=== PATIENT | male | born 1965 | race Caucasian/White ===

== ENCOUNTER 2016-08-31 16:49 | Emergency (ER) | payer MEDICAID ==
[~2016-08-31] VITALS: Ht 157.5 cm; Wt 59.0 kg
[~2016-08-31 16:49] MED LIST: AMOXICILLIN 50500 MG PO; APAP/BUTALBITAL1 TA1 PO; AUGMENTIN 875-1 EACH PO; CIPRO 500MG TA500 MG PO; FLEXERIL10 MG PO; GABAPENTIN300 M1 PO; HYTRIN5 MG PO; INDOCIN25 MG PO; KEFLEX 500MG.500 MG PO; LISINOPRIL 10MG10 MG PO; LODINE200 MG PO; LORATADINE 10MG10 M1 PO; LORTAB 5/500 501 TAB PO; MECLIZINE 25MG25 MG PO; MELOXICAM15 MG PO; NOMEDS XX; POTASSIUM CHLO10 ME3 PO; PYRIDIUM 200MG200 MG PO; SUMATRIPTAN SUC25 MG PO; TORADOL10 M2 PO; ZANTAC 150MG T150 MG PO; [UNRECOGNIZED DRUG - OTHER] PO
[2016-08-31] MEDS ORDERED: AMLODIPINE BES2.5 MG PO (16:59)
[2016-08-31] MEDS ORDERED: HCTZ/LISINOPRIL1 TA3 PO (16:59)
[2016-08-31] MEDS ORDERED: ASPIRIN ADULT L81 M3 PO (17:00)
[2016-08-31] MEDS ORDERED: OMEPRAZOLE20 MG PO (17:00)
[2016-08-31] MEDS ORDERED: GABAPENTIN300 M1 PO (17:00)
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
[2016-08-31 17:38] VITALS: BP 128/96
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
== END 2016-08-31 17:39 | disposition home or self-care (01) ==
LOC: ER 16:49
PROC: 09QKXZZ Repair Nasal Mucosa and Soft Tissue, External Approach (ICD-10-PCS; principal; 2016-08-31)
DX: S02.2XXA Fracture of nasal bones, initial encounter for closed fracture (principal); S01.21XA Laceration without foreign body of nose, initial encounter; W45.8XXA Other foreign body or object entering through skin, initial encounter; Y92.69 Other specified industrial and construction area as the place of occurrence of the external cause; Y99.0 Civilian activity done for income or pay; Z23 Encounter for immunization; I10 Essential (primary) hypertension; Z72.0 Tobacco use
CPT/HCPCS: G0168

== ENCOUNTER → 2016-12-01 | Outpatient (CLI) | payer MEDICAID ==
[~2016-12-01] MED LIST changes: +AMLODIPINE BES2.5 MG PO; +ASPIRIN ADULT L81 M3 PO; +HCTZ/LISINOPRIL1 TA3 PO; +OMEPRAZOLE20 MG PO
[2016-12-01 07:31] LABS: HEMOGLOBIN 17.2 g/dL (14.1-18.0); LYMPH % 33.9 % (10-50)
[2016-12-01 08:27] LABS: BUN 8 mg/dL (7-18)
[2016-12-01 08:28] LABS: GFR (ESTIMATED) 78 ML/MIN (>60)
== END ==
LOC: LAB 06:55
PROVIDERS: Internal Medicine Adolescent Medicine
DX: I25.10 Atherosclerotic heart disease of native coronary artery without angina pectoris (principal)

== ENCOUNTER → 2017-05-08 | Outpatient (CLI) | payer MEDICAID ==
[~2017-05-08] MED LIST changes: +AMLO2.5T PO; +ASPIRIN 81MG TA81 MG PO; +GABAPENTIN300 MG PO; +OMEPRAZOLE40 MG PO
--- NOTE | 2017-05-09 06:26 | RADIOLOGY REPORT PS360 ---
MRI-L-SPINE W/O, MRI-3D RENDERING/MYELOGRAM HISTORY: Low back pain with bilateral leg pain and numbness and tingling LUMBAR BACK PAIN ORDERING PHYSICIAN: RIVERA RASMUSSEN CRNA PATIENT AGE: 52 years COMPARISON: Radiograph of 04/05/2017 TECHNIQUE: Standard multiplanar multiecho sequences are performed without contrast. 3-D MIP and myelographic images are also rendered and reviewed FINDINGS: There is normal alignment. The spinal cord ends at the L1 level. There is mild degenerative disc disease at T11-T12 with right foraminal disc osteophyte complex and facet hypertrophy causing severe right-sided foraminal narrowing. L1-L2: Degenerative disc disease with concentric bulging disc with mild bilateral lateral recess and foraminal narrowing. Mild facet hypertrophy. L2-L3: Mild concentric bulging disc with mild bilateral foraminal narrowing and mild bilateral lateral recess narrowing. L3-L4: degenerative disc disease with mild concentric bulging disc with mild facet and ligamentum flavum hypertrophy and mild bilateral lateral recess and foraminal narrowing. L4-5: Degenerative disc disease with mild concentric bulging disc along with facet and ligamentum hypertrophy with mild bilateral foraminal narrowing. L5-S1: Degenerative disc disease with bulging disc along with facet and ligamentum hypertrophy with mild right foraminal narrowing and moderate left foraminal narrowing. No disc herniation. No canal stenosis. IMPRESSION: 1. Multilevel lumbar spondylosis with degenerative disc disease and facet hypertrophy with bulging disc with resultant bilateral lateral recess and foraminal narrowing as detailed at each level above. Please see above for detailed description. 2. Degenerative disc disease at T11-T12 with right foraminal disc osteophyte complex and facet hypertrophy causing severe right-sided foraminal narrowing 3. No extruded herniated disc or canal stenosis
== END ==
LOC: RAD 09:49
DX: M54.5 Low back pain (principal)

== ENCOUNTER 2017-06-26 16:28 | Emergency (ER) | payer MEDICAID ==
--- OUTSIDE RECORDS SUMMARY | 2017-06-26 17:05 | External Medical Summary Rpt | CCD ---
Author Author Conduent Organization [employer]du[employer] Address Unknown Phone Unavailable Purpose Continuity of Care Document - through 2016
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
--- OUTSIDE RECORDS SUMMARY | 2017-06-26 17:05 | External Medical Summary Rpt | CCD ---
Demographics Preferred Language Armenian Marital Status Unknown Taoist Affiliation Unknown Race Unknown Ethnic Group Unknown Author Author NHUNG Address Unknown Phone Immunization No patient found.
--- OUTSIDE RECORDS SUMMARY | 2017-06-26 17:05 | External Medical Summary Rpt ---
Author Author YAZMIN Eubanks, [employer] Organization [employer] Address Unknown Phone Unavailable
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
--- OUTSIDE RECORDS SUMMARY | 2017-06-26 17:05 | External Medical Summary Rpt | CCD ---
Demographics Preferred Language Mongolian Marital Status Unknown Gnosticism Affiliation Unknown Race Unknown Ethnic Group Unknown Author Author NHUNG Address Unknown Phone Immunization No patient found.
[2017-06-27] MEDS ORDERED: PREDNISONE 20MG20 MG PO (10:36)
[2017-06-27] MEDS ORDERED: ZITHROMAX Z PA250 MG PO (10:36)
[2017-06-27] MEDS ORDERED: PROVENTIL0.09 MG/A1 IH (10:36)
== END 2017-06-26 17:51 | disposition left against medical advice (07) ==
LOC: UTC 16:28
DX: J18.1 Lobar pneumonia, unspecified organism (principal)

== ENCOUNTER 2017-06-27 08:55 | Emergency (ER) | payer MEDICAID ==
[~2017-06-27] VITALS: Ht 157.5 cm; Wt 61.2 kg
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
--- OUTSIDE RECORDS SUMMARY | 2017-06-27 09:01 | External Medical Summary Rpt | CCD ---
Demographics Preferred Language Setswana Marital Status Unknown Evangelical Affiliation Unknown Race Unknown Ethnic Group Unknown Author Author NHUNG Address Unknown Phone Immunization No patient found.
--- OUTSIDE RECORDS SUMMARY | 2017-06-27 09:01 | External Medical Summary Rpt | CCD ---
Demographics Preferred Language Slovenian Marital Status Unknown Judaism Affiliation Unknown Race Unknown Ethnic Group Unknown Author Author NHUNG Address Unknown Phone Immunization No patient found.
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
[2017-06-27] MEDS ORDERED: PREDNISONE 20MG20 MG PO (10:36)
[2017-06-27] MEDS ORDERED: PROVENTIL0.09 MG/A1 IH (10:36)
[2017-06-27] MEDS ORDERED: ZITHROMAX Z PA250 MG PO (10:36)
[2017-06-27 10:45] VITALS: BP 145/97
--- NOTE | 2017-06-27 12:30 | RADIOLOGY REPORT PS360 ---
CHEST(2 VIEWS-NOT PORTABLE) HISTORY: COUGH ORDERING PHYSICIAN: TWILA PEREZ APRN PATIENT AGE: 52 years COMPARISON: 03/02/2016 FINDINGS: The cardiomediastinal silhouette and pulmonary vascularity are within normal limits. Patchy infiltrate and/or atelectatic change is present in the right middle lobe. There is an old right seventh rib fracture. Bone plate is present over the lower cervical spine. IMPRESSION: Right middle lobe atelectasis and/or infiltrate
== END 2017-06-27 10:46 | disposition home or self-care (01) ==
LOC: UTC 08:55
DX: J18.1 Lobar pneumonia, unspecified organism (principal); I10 Essential (primary) hypertension; Z79.82 Long term (current) use of aspirin; F17.210 Nicotine dependence, cigarettes, uncomplicated